=== PATIENT | male | born 1935 | race Caucasian/White ===

== ENCOUNTER → 2016-10-15 | Outpatient (CLI) | payer MEDICARE ==
[~2016-10-15] MED LIST: ALLO300T2 PO; DILA8TAB4 PO; ENOX40P SQ; HYDR-3129 PO; PIOG15 PO; PROS5TAB2 PO; PROT40TA PO; SITA100 PO; TAMS0.4C67 PO; TUMS CHEW
--- NOTE | 2016-10-30 10:24 | RSPPFT ---
DATE OF PROCEDURE: 10/15/16 COMMENTS: VOLUMES DYNAMIC: FVC normal; FEV1 mildly reduced. STATIC: TLC mildly reduced; FRC and RV normal. FLOWS: FEV1% mildly reduced; FEF 25-75 severely reduced. DIFFUSION: Moderately reduced. FLOW VOLUME LOOP: Pattern of variable intrathoracic airways obstruction. IMPRESSION: Combined mild obstructive and mild restrictive ventilator defect with a moderate reduction in diffusion and minimal change post-bronchodilator. Airways resistance is increased.
== END ==
LOC: HRSP 11:33
PROVIDERS: ATTEND Internal Medicine
DX: J44.9 Chronic obstructive pulmonary disease, unspecified (principal); R06.02 Shortness of breath
CPT/HCPCS: 94060; 94620; 94726; 94729